=== PATIENT | female | born 1960 | race Caucasian/White ===

== ENCOUNTER 2021-01-28 07:57 | Day surgery (SDC) | payer OTHER ==
[2021-01-24 10:11] VITALS: BMI 30.1
[2021-01-28] MEDS ORDERED: PROPOFOL 20 ML ONE ×3 (09:02)
[2021-01-28 09:45] VITALS: PULSE 72; TEMP 97.8
[2021-01-28 10:00] VITALS: BP 108/72
== END 2021-01-28 10:00 | disposition home or self-care (01) ==
LOC: FASU-ENDO 07:57
PROVIDERS: ATTEND Internal Medicine Gastroenterology
PROC: 0DJD8ZZ Inspection of Lower Intestinal Tract, Via Natural or Artificial Opening Endoscopic (ICD-10-PCS; principal; 2021-01-28 09:07)
DX: Z12.11 Encounter for screening for malignant neoplasm of colon (principal)

== ENCOUNTER 2022-01-01 16:32 | Emergency (ER) | payer OTHER ==
[2022-01-01 16:40] VITALS: TEMP 98.2; BMI 29.2
[2022-01-01 17:47] LABS: BASO % 0.5 % (0-2.0); EOS % 0.7 % (0-4.5); HEMOGLOBIN 14.4 GM/dL (10.7-15.3); LYMPH % 21.8 % (8-40); MCH 30.8 pg (25.7-33.7); MCHC 33.5 g/dl (32.0-36.0); MEAN CELL VOLUME 91.9 fl (80-96); MEAN PLT VOLUME 8.4 fl (7.5-11.1); MONO % 7.3 % (3.8-10.2); NEUT % 69.7 % (42.8-82.8); PLATELET COUNT 203 10^3/uL (134-434); RBC 4.68 M/mm3 (3.60-5.2); RDW 13.8 % (11.6-15.6); WHITE BLOOD COUNT 8.3 K/mm3 (4.0-10.0)
[2022-01-01] MEDS ORDERED: METHOCARBAMOL 500 MG TABLET PO ONE (17:58)
[2022-01-01] MEDS ORDERED: ACETAMINOPHEN 1000 MG/100 ML BAG IVPB ONE (17:58)
[2022-01-01] MEDS ORDERED: LIDOCAINE 5% TOPICAL PATCH TP ONE (17:58)
[2022-01-01 18:07] LABS: INR 1.09 (0.83-1.09); PROTHROMBIN TIME (PATIENT) 12.5 SEC (9.7-13.0)
[2022-01-01 18:10] LABS: ACTIVATED PTT 31.4 SECONDS (25.2-36.5)
[2022-01-01] MEDS ORDERED: LIDOCAINE 5% TOPICAL PATCH ONE (18:12)
[2022-01-01] MEDS ORDERED: METHOCARBAMOL 500 MG TABLET ONE (18:12)
[2022-01-01] MEDS ORDERED: ACETAMINOPHEN INJECTION 100 ML IVPB ONE (18:12)
[2022-01-01 18:18] LABS: BLOOD UREA NITROGEN 14.3 mg/dL (7-18); CALCIUM 9.2 mg/dL (8.5-10.1)
[2022-01-01 18:21] LABS: CREATININE 0.7 mg/dL (0.55-1.3)
[2022-01-01 18:23] LABS: BILIRUBIN,TOTAL 0.5 mg/dL (0.2-1); TOT PROT 8.3 g/dl (6.4-8.2)
[2022-01-01 20:42] VITALS: BP 148/53; PULSE 94
[2022-01-02] MEDS ORDERED: LIDOCAINE PATCH REMOVAL MC SCH (06:00)
== END 2022-01-01 20:43 | disposition home or self-care (01) ==
LOC: JER 16:32
PROC: 3E0333Z Introduction of Anti-inflammatory into Peripheral Vein, Percutaneous Approach (ICD-10-PCS; principal; 2022-01-01)
DX: M54.50 Low back pain, unspecified (principal)
CPT/HCPCS: 36415; 71275-TC; 74174-TC; 80053; 83735; 84484; 85025; 85610; 85730; 86850; 86900; 86901; 93005; 93010; 96374; 99285-25; Q9967